=== PATIENT | male | born 1975 | race Caucasian/White ===

== ENCOUNTER 2016-10-07 22:21 | Emergency (ER) | payer SELFPAY ==
[2016-10-07] MEDS ORDERED: NS 1,000 ML IV ONE (22:37)
--- NOTE | 2016-10-07 22:37 | EDPHY ---
H & P Source: Patient, EMS Exam Limitations: No limitations HPI/ROS: HPI The patient presents with suicidal ideation, brought in by paramedics and police on M1 hold. He has a plan to overdose on medication in an effort to end his life. He is feeling depressed because of his diagnosis of HIV which she received about 5 years ago. He has been on a 6 day binge of methamphetamine, last use about 6 hours ago. He also reports that he feels that people are chasing him. He has a history of bipolar disorder and depression, he moved here about 2 months ago from [place] and has been [place] [facility] the [facility] [place]. He has no prior suicidal ideation though has been admitted to a mental health hospital several years ago. Chronic cough. REVIEW OF SYSTEMS Constitutional: No fever, no chills. Eyes: No discharge. ENT: No sore throat. Cardiovascular: No chest pain, no palpitations. Respiratory: Positive for cough, no shortness of breath. Gastrointestinal: No abdominal pain, no vomiting. Genitourinary: No hematuria. Musculoskeletal: No back pain. Skin: No rashes. Neurological: No headache. PMHx: HIV, last CD4 count 211, last viral load 38K, last checked while incarcerated in June of 2015, not on any anti-retroviral therapy, hepatitis-C, bipolar and depression Soc Hx: Recently moved here from [place], currently homeless and camping, smokes cigarettes, drinks alcohol heavily, uses methamphetamine PHYSICAL General Appearance: Alert, no distress Eyes: Pupils equal and round no pallor or injection ENT, Mouth: Mucous membranes moist Respiratory: There are no retractions, lungs are clear to auscultation Cardiovascular: Tachycardic with regular rhythm Gastrointestinal: Abdomen is soft and non-tender, no masses, bowel sounds normal Neurological: A&O, moves all extremities Skin: Warm and dry, no rashes Musculoskeletal: Neck is supple non tender Extremities: symmetrical, full range of motion Psychiatric: Patient is oriented X 3, there is no agitation (RiguzziVerónica) Constitutional: Initial Vital Signs Temperature (C) 36.9 C 10/07/16 22:21 Heart Rate 131 H 10/07/16 22:21 Respiratory Rate 18 10/07/16 22:21 Blood Pressure 157/144 H 10/07/16 22:21 O2 Sat (%) 97 10/07/16 22:21 O2 Delivery Mode Room Air Allergies/Adverse Reactions: No Known Allergies Allergy (Verified 10/07/16 22:38) Home Medications: Medication Instructions Recorded NK [No Known Home Meds] 10/07/16 Medical Decision Making - Diagnostics Imaging: I viewed and interpreted images myself ED Course/Re-evaluation: This patient was turned over to me at change of shift. He was psychologically evaluated. He does not endorse any suicidal homicidal ideations or gestures. He is no longer high on methamphetamines. He is not interested in rehabilitation. He would like to be discharged any safe for that. (Hank Calle) Differential Diagnosis: This is a 41-year-old man, homeless with history of bipolar and depression per his report, also hepatitis-C and HIV who is brought in by ambulance on an M1 hold for suicidal ideation with plan to overdose on medication. On exam, he is tachycardic and hypertensive, I attribute this to methamphetamine intoxication. Otherwise his exam is normal though he is complaining of a cough. Differential diagnosis includes methamphetamine induced psychosis and suicidality, bipolar disorder with suicidal ideation, alcohol intoxication. Plan for IV fluid bolus, chest x-ray, basic labs. In the emergency room, patient was given 1 L fluid bolus, Ativan. Potassium was low and thus he was given potassium by mouth. Urine toxicology was positive for methamphetamine. He will be evaluated by the mental health team, however this will be delayed given his amphetamine intoxication. The patient comfortably slept for most of the night. At change of shift at 7: 00 a.m., the case was signed out to the oncoming provider Dr. Calle pending psychiatric evaluation. (Verónica Hammer) - Data Points Laboratory Results: Laboratory Results 10/07/16 22:30 10/07/16 22:30 Medications Given: Discontinued Medications Chlordiazepoxide HCl (Librium) 50 mg PO EDNOW ONE Stop: 10/08/16 07:45 Last Admin: 10/08/16 07:50 Dose: 50 mg Sodium Chloride (Ns) 1,000 mls @ 0 mls/hr IV ONCE ONE; Wide Open PRN Reason: Protocol Stop: 10/07/16 22:38 Last Admin: 10/07/16 22:55 Dose: 1,000 mls Lorazepam (Ativan Injection) 1 mg IVP EDNOW ONE Stop: 10/07/16 23:24 Last Admin: 10/07/16 23:40 Dose: 1 mg Potassium Chloride (Klor Packets) 40 meq PO EDNOW ONE Stop: 10/07/16 23:07 Last Admin: 10/07/16 23:56 Dose: 40 meq Departure - Departure Clinical Impression: Suicidal ideation, Hypokalemia, Methamphetamine abuse Condition: Fair Instructions: Methamphetamine Abuse (ED) Referrals: Patient,NotPresent [Unknown] - As per Instructions
[2016-10-07 22:42] LABS: ADD DIFF? YES; ADD MORPH? NO; ADD SCAN? YES; FRAGMENT RBC FLAG 0 (0-99); HEMATOCRIT 51.3 % (40.0-51.0); HEMOGLOBIN 18.5 g/dL (13.7-17.5); LEFT SHIFT FLG 0 (0-99); LIPEMIA HEMOLYSIS FLAG 90 (0-99); MEAN CELL HEMOGLOBIN 33.6 pg (27.9-34.1); MEAN CELL HEMOGLOBIN CONCENTR. 36.1 g/dL (32.4-36.7); MEAN CELL VOLUME 93.1 fL (81.5-99.8); MEAN PLATELET VOLUME 10.5 fL (8.7-11.7); PLATELET CLUMPS FLAG 0 (0-99); PLATELET COUNT 153 10^3/uL (150-400); RED BLOOD CELL COUNT 5.51 10^6/uL (4.40-6.38); RED CELL DISTRIBUTION WIDTH 15.9 % (11.5-15.2)
[2016-10-07 22:47] LABS: ATYPICAL LYMPHOCYTE FLAG 130 (0-99)
[2016-10-07 22:55] LABS: ANION GAP 21 mEq/L (8-16); CALCIUM 9.7 mg/dL (8.5-10.4); CARBON DIOXIDE 17 mEq/l (22-31); CHLORIDE 106 mEq/L (97-110); CREATININE 1.2 mg/dL (0.7-1.3); ETHANOL SERUM 54 mg/dL (0-10); GLOMERULAR FILTRATION RATE > 60; GLUCOSE 122 mg/dL (70-100); POTASSIUM 2.9 mEq/L (3.5-5.2); SODIUM 144 mEq/L (134-144)
[2016-10-07] MEDS ORDERED: POTASSIUM CL 20 MEQ PKT PO ONE (23:06)
[2016-10-07] MEDS ORDERED: LORazepam 2 MG/ML INJ IVP ONE (23:23)
[2016-10-07 23:43] LABS: PLATELET ESTIMATE ADEQUATE (ADEQ)
[2016-10-08 07:18] LABS: SCAN NEGATIVE
[2016-10-08] MEDS ORDERED: chlordiazePOXIDE 25 MG CAP PO ONE (07:44)
[2016-10-08 10:23] VITALS: BP 132/88; PULSE 81; RESP 16; TEMP 98.1; O2SAT 94
== END 2016-10-08 12:21 | disposition home or self-care (01) ==
LOC: EDUNIT#
DX: R45.851 Suicidal ideations (principal); E87.6 Hypokalemia; F15.10 Other stimulant abuse, uncomplicated; B20 Human immunodeficiency virus [HIV] disease; F17.210 Nicotine dependence, cigarettes, uncomplicated
CPT/HCPCS: 80305; 96374; G0480; J2060